=== PATIENT | female | born 1955 | race African-American/Black ===

== ENCOUNTER 2016-12-02 07:33 | Emergency (ER) | payer MEDICARE, OTHER ==
[2016-12-02] MEDS ORDERED: PROMETHAZINE HCL 12.5 MG in 0.9 % SODIUM CHLORIDE 50 ML IV ONE ×2 (07:44→10:04)
[2016-12-02] MEDS ORDERED: fentaNYL CITRATE/PF 100 MCG/ 2ML AMP IVP ONE ×2 (07:44→10:14)
[2016-12-02] MEDS ORDERED: 0.9 % SODIUM CHLORIDE 1,000 ML IV ONE (07:45)
--- NOTE | 2016-12-02 07:47 | ED Physician Documentation ---
Abdominal Pain - HISTORIAN Historian: patient - HPI Stated Complaint: nausea/vomiting Chief Complaint: Abdominal Pain Onset: hours (0300) Duration: constant Timing: worse Context: denies: out of country travel, bad food, recent trauma Severity: severe Quality: pain Associated Symptoms: nausea, vomiting. denies: coffee ground emesis, bloody emesis, diarrhea, grossly bloody stools, chest pain Further Comments: yes (61 year old female patient brought in via EMS with RLQ pain with nausea and vomiting which started at 0300. Patient is visiting from [place]. Last Dialysis 12/01/2016, Last BM 12/01/16) - ROS CONST: recent illness (UTI) GI/: denies: constipation, black stools, bloody urine CVS/RESP: none EYES/ENT: none MS/SKIN/LYMPH: leg swelling NEURO/PSYCH: none Comment: YAS Mcneil; patient poor historian - SOCIAL HX Smoking History: non-smoker - FAMILY HX Family History: denies: none - PAST HX Past History: bladder infection, cardiac disease, GERD, other (See Medical History attachment - End stage renal disease, dialysis patient - home dialysis M , T, Th, F; Colon CA, gastroparesis, diverticulitus, TIAs, Retinal detanchment, asthma, Head injury, anemia, ) Other History: diabetes Type 2, hyperlipidemia, hypertension Surgeries/Procedures: appendectomy, cholecystectomy, hysterectomy, cardiac stent (05/31/16 and 08/30/16), other (LUQ dialysis fitsula, Colon resection - CA, hernia repair 08/2010) Home Medications: Ambulatory Orders Medication Instructions Recorded Aspirin [Luci] 81 mg PO DAILY 12/02/16 Benzonatate [Tessalon] 100 mg PO TID PRN 12/02/16 Bone Meal/Vitamin D2 [Bone 1 each PO Q7D 12/02/16 Meal-Vitamin D Tablet] Chlorhexidine Gluconate [Peridex] PO BID 12/02/16 CloNIDine HCL [Catapress] 0.2 mg PO HS 12/02/16 Cyclobenzaprine HCl [Flexeril] 5 mg PO HS PRN 12/02/16 Diphenoxylate HCl/Atropine 1 mg PO Q6H 12/02/16 [Diphenoxylate-Atropine Liq] Doxycycline Monohydrate 100 mg PO BID 12/02/16 [Vibramycin] Esomeprazole Magnesium [Nexium] 20 mg PO QDAY 12/02/16 Fluticasone Propionate [Flonase] 2 spray NS QDAY 12/02/16 Furosemide [Lasix] 40 mg PO DAILY 12/02/16 Insulin Aspart Protam & Aspart 15 unit SQ 17 12/02/16 [Novolog Mix 70-30 Flexpen Syrn] Insulin Aspart Protam & Aspart 25 unit SQ [id number] 12/02/16 [Novolog Mix 70-30 Flexpen Syrn] Ipratropium [place] [Atrovent] 1 puff NS Q1H PRN 12/02/16 LORazepam [Ativan] 0.5 mg PO HS 12/02/16 Lidocaine/Prilocaine [Emla Cream] 30 gm TP QDAY 12/02/16 Lovastatin [Altoprev] 20 mg PO HS 12/02/16 Metoclopramide HCl [Reglan] 2.5 mg PO TID PRN 12/02/16 Nebivolol HCl [Bystolic] 20 mg PO QDAY 12/02/16 Promethazine HCl [Phenergan] 25 mg PO Q6 PRN 12/02/16 Sevelamer Carbonate [Renvela] 2,400 mg PO TID 12/02/16 Sumatriptan Succinate [Imitrex] 50 mg PO QDAY PRN 12/02/16 Vitamin E 400 unit PO HS 12/02/16 amLODIPine BESYLATE [Norvasc] 10 mg PO 0900 12/02/16 gliPIZIDE [Glucotrol] [place] [address] 12/02/16 Allergies/Adverse Reactions: Allergies Allergy/AdvReac Type Severity Reaction Status Date / Time levofloxacin [From Levaquin] Allergy Rash Verified 12/02/16 07:49 morphine Allergy Itchy Skin Verified 12/02/16 07:49 Penicillins Allergy Rash Verified 12/02/16 07:49 cinacalcet HCl AdvReac Rash Verified 12/02/16 07:49 [From Sensipar] latex AdvReac Rash Verified 12/02/16 07:49 cavy wipes AdvReac Rash Uncoded 12/02/16 07:49 galidium AdvReac Rash Uncoded 12/02/16 07:49 lodine AdvReac Rash Uncoded 12/02/16 07:49 - VITAL SIGNS Vital Signs: Vital Signs Temp Pulse Resp BP Pulse Ox 98.2 F 107 H 24 221/107 94 12/02/16 07:33 12/02/16 07:33 12/02/16 07:33 12/02/16 07:33 12/02/16 07:33 - REVIEWED ASSESSMENTS Nursing Assessment Reviewed: Yes Vitals Reviewed: Yes Progress - Progress Progress: Patient is visiting her mother from [place]. Uses home dialysis treatments with the [facility], usual schedule M, T, Th, Fr, healthcare interpreter reports they did a treatment yesterday and had planned to travel home tomorrow. Patient medicated with promethazine and fentanyl IV for nausea and vomiting. EMS reported patient could not take zofran. Patient has not taken her morning BP medications - Norvasc 10 and bystolic 20mg , hydralazine 10mg IV given. 0930 Reviewed lab and xray results with patient, caregiver and family. Recommended transfer to higher level of care. Family prefers [facility]. 0940 Call to [facility] principal. 1005 Patient awake, c/o nausea; states she cannot take zofran "it make me throw up". Additional promethazine 12.5mg IV given. Repeated Hydralazine. 10mg IV. BBS with faint exp wheeze. Lactate and ammonia both send outs, will defer to [facility] [address] Lerner after CT abd. Patient resting quietly at present. BP improved after 20mg of hydralazine 174/81. Awaiting bed at [facility]. ED Results Lab/Radiology - Lab Results Lab Results: Lab Results 12/02/16 12/02/16 12/02/16 07:46 07:40 07:40 WBC 11.19 K/ul K/ul (4.00-12.00) RBC 3.58 M/ul L M/ul (3.90-5.20) Hgb 11.7 g/dL L g/dL (12.0-16.0) Hct 35.7 % % (34.5-46.5) MCV 99.7 fl fl (80.0-100.0) MCH 32.7 pg pg (28.0-34.0) MCHC 32.8 g/dL g/dL (30.0-36.0) RDW 16.4 % H % (11.3-14.3) Plt Count 129 K/mm3 L K/mm3 (130-400) Neut % (Auto) 89.7 % H % (39.0-79.0) Lymph % (Auto) 5.3 % L % (16.0-50.0) [place] % (Auto) 3.3 % % (0.0-11.0) Eos % (Auto) 1.1 % % (0.0-6.8) Baso % (Auto) 0.2 (0.0-1.5) Neut # (Auto) 10.0 # k/uL H # k/uL (1.4-7.7) Lymph # (Auto) 0.6 # k/uL # k/uL (0.6-4.0) [place] # (Auto) 0.4 # k/uL # k/uL (0.0-0.9) Eos # (Auto) 0.1 # k/uL # k/uL (0.0-0.6) Baso # (Auto) 0.0 # k/uL # k/uL (0.0-0.5) Reactive Lymphs % 0.4 % % (0.0-5.0) Reactive Lymphs # 0.0 # k/uL # k/uL (0.0-0.8) Sodium 137 mmol/L mmol/L (136-145) Potassium 4.2 mmol/L mmol/L (3.5-5.0) Chloride 97 mmol/L L mmol/L (98-110) Carbon Dioxide 29 mmol/L mmol/L (20-32) BUN 45 mg/dL H mg/dL (10-26) Creatinine 9.7 mg/dL H mg/dL (0.4-1.5) Estimated Creat Clear 10 Est GFR ( Amer) 5 L (60 - ) Est GFR (Non-Af Amer) 4 L (60 - ) Glucose 309 mg/dL H mg/dL (70-99) Calcium 10.4 mg/dL mg/dL (8.5-10.5) Total Bilirubin 0.2 mg/dL mg/dL (0.2-1.2) AST 33 U/L U/L (0-41) ALT 38 U/L U/L (0-45) Alkaline Phosphatase 237 U/L H U/L (46-116) Troponin I < 0.03 ng/mL L ng/mL (0.03-0.06) Total Protein 8.0 g/dL g/dL (6.0-8.5) Albumin 4.0 g/dL g/dL (3.0-5.5) - Radiology Radiology Impressions: Abdomen Complete: CLINICAL HISTORY: Right lower quadrant abdominal pain. FINDINGS: Examination of the abdomen in supine and upright views with no prior film for comparison demonstrates gas and stool in the colon. There are surgical clips in right upper quadrant consistent with previous cholecystectomy. Bony structures are intact. Visualized lung bases are clear. There are calcifications in the pelvis consistent with phleboliths. There is no evidence of obstruction or free air. IMPRESSION: Postoperative abdomen. No obstruction or free air. Chest Xray: CLINICAL HISTORY: Wheezing. FINDINGS: Examination of the chest in single portable AP view 12/02/2016 1030 hr with no prior film for comparison demonstrates lungs to be free of coalescent infiltrate. Cardiac silhouette is enlarged and the aorta is atherosclerotic. Monitor leads superimpose the chest. There is mild prominence of the bronchovascular markings in the bases that is felt to be related to overlying soft tissues. IMPRESSION: Aortic atherosclerosis and left ventricular prominence. No active disease. Electronically signed on Dec 02, 2016 10:47:09 AM CDT by: Chuck Suazo CT of the abdomen and pelvis without contrast : CLINICAL HISTORY: Nausea and vomiting. Abdominal pain. TECHNIQUE: CT of the abdomen and pelvis is performed without oral or intravenous administration of contrast. Sagittal and coronal reconstructions are performed by the technologist. FINDINGS: Motion artifact blurs the vascular structures in the lung bases. There are small bilateral pleural effusions with minimal discoid atelectasis in the right base. Liver and spleen demonstrate normal attenuation without focal defect. Gallbladder is surgically absent. There is no pancreatic or adrenal abnormality. Vascular calcification is present in the abdominal aorta and its major branches without evidence of aneurysm. Ventral abdominal hernia is seen in a periumbilical location with herniated segment of transverse colon without evidence of obstruction. Multiple diverticula are seen in the descending and sigmoid colon without evidence of diverticulitis. The uterus is surgically absent. IMPRESSION: Bilateral pleural effusions with discoid changes right base. Postoperative abdomen. Left periumbilical ventral abdominal wall hernia with herniated segment of transverse colon without obstruction. Vascular calcification. Diverticulosis. - Orders Orders: ED Orders Category Date Time Status Place IV Lock 1T Care 12/02/16 07:40 Active ABDOMEN COMPLETE [RAD] Stat Exams 12/02/16 Ordered CHEST 1 VIEW [RAD] Stat Exams 12/02/16 10:[address] ABD & PELVIS W/O CON Stat Exams 12/02/16 Ordered CBC/PLATELET/DIFF Stat Lab 12/02/16 07:40 Completed CMP Stat Lab 12/02/16 07:40 Completed TROPONIN I (cTnI) Stat Lab 12/02/16 07:46 Completed 0.9 % Sodium Chloride [Normal Saline] 1,000 ml Med 12/02/16 07:45 Active IV NOW Ipratropium/Albuterol Sulfate [Duoneb] Med 12/02/16 10:10 Discontinued 3 ml NEB NOW ONE Promethazine HCl [Phenergan] 12.5 mg Med 12/02/16 07:44 Discontinued 0.9 % Sodium Chloride [Sodium Chloride] 50 ml IV NOW Promethazine HCl [Phenergan] 12.5 mg Med 12/02/16 10:04 Discontinued 0.9 % Sodium Chloride [Sodium Chloride] 50 ml IV NOW fentaNYL CITRATE/PF [Duragesic] Med 12/02/16 07:44 Discontinued 50 mcg IVP NOW ONE fentaNYL CITRATE/PF [Duragesic] Med 12/02/16 10:14 Discontinued 50 mcg IVP NOW ONE hydrALAZINE HCL [Apresoline] Med 12/02/16 09:32 Discontinued 10 mg IVP NOW ONE hydrALAZINE HCL [Apresoline] Med 12/02/16 10:04 Discontinued 10 mg IVP NOW ONE EKG WITH COMPARISON Stat Ther 12/02/16 07:46 Completed HI FLOW NEBULIZER TX - INITIAL Routine Ther 12/02/16 Completed HIGH FLOW NEBULIZER Routine Ther 12/02/16 Completed O2 MASK Routine Ther 12/02/16 Completed OXIMETRY-SINGLE CHECK Routine Ther 12/02/16 Completed Abdominal Pain Physical Exam - Physical Exam General Appearance: moderate distress EENT: eye inspection normal, FRANK RESPIRATORY: no resp distress, chest non-tender, breath sounds normal CVS: reg rate & rhythm, heart sounds normal, equal pulses, no murmur, no gallop , PMI nml, no JVD, no friction rub, 24 ABDOMEN: soft, tenderness (RLQ), abnormal bowel sounds (hypoactive BS), McBurney 's point tenderne SKIN: normal color, warm/dry, NR, INT, PAL, DR EXTREMITIES: non-tender, normal range of motion, no evidence of injury, no edema , other (fistula Left upper arm - bruit ascultated) NEURO: oriented X3, motor nml, sensation nml, other (YANG x 4, follows commands, restless, no focal deficit, ) Vital Signs: Vital Signs Temp Pulse Resp BP Pulse Ox 98.2 F 107 H 24 221/107 94 12/02/16 07:33 12/02/16 07:33 12/02/16 07:33 12/02/16 07:33 12/02/16 07:33 Discharge Clincal Impression: ESRD (end stage renal disease), Dialysis patient Nausea & vomiting Qualifiers: Vomiting type: unspecified Vomiting Intractability: intractable Qualified Code( s): R11.2 - Nausea with vomiting, unspecified Abdominal pain Qualifiers: Abdominal location: right lower quadrant Qualified Code(s): R10.31 - Right lower quadrant pain Referrals: Primary Doctor,No [Primary Care Provider] - 2 Days Home Medications: Ambulatory Orders Aspirin [Luci] 81 mg PO DAILY 12/02/16 Benzonatate [Tessalon] 100 mg PO TID PRN 12/02/16 Bone Meal/Vitamin D2 [Bone Meal-Vitamin D Tablet] 1 each PO Q7D 12/02/16 Chlorhexidine Gluconate [Peridex] PO BID 12/02/16 CloNIDine HCL [Catapress] 0.2 mg PO HS 12/02/16 Cyclobenzaprine HCl [Flexeril] 5 mg PO HS PRN 12/02/16 Diphenoxylate HCl/Atropine [Diphenoxylate-Atropine Liq] 1 mg PO Q6H 12/02/16 Doxycycline Monohydrate [Vibramycin] 100 mg PO BID 12/02/16 Esomeprazole Magnesium [Nexium] 20 mg PO QDAY 12/02/16 Fluticasone Propionate [Flonase] 2 spray NS QDAY 12/02/16 Furosemide [Lasix] 40 mg PO DAILY 12/02/16 Insulin Aspart Protam & Aspart [Novolog Mix 70-30 Flexpen Syrn] 15 unit SQ 17 Insulin Aspart Protam & Aspart [Novolog Mix 70-30 Flexpen Syrn] 25 unit SQ [id number] 12/02/16 Ipratropium [place] [Atrovent] 1 puff NS Q1H PRN 12/02/16 LORazepam [Ativan] 0.5 mg PO HS 12/02/16 Lidocaine/Prilocaine [Emla Cream] 30 gm TP QDAY 12/02/16 Lovastatin [Altoprev] 20 mg PO HS 12/02/16 Metoclopramide HCl [Reglan] 2.5 mg PO TID PRN 12/02/16 Nebivolol HCl [Bystolic] 20 mg PO QDAY 12/02/16 Promethazine HCl [Phenergan] 25 mg PO Q6 PRN 12/02/16 Sevelamer Carbonate [Renvela] 2,400 mg PO TID 12/02/16 Sumatriptan Succinate [Imitrex] 50 mg PO QDAY PRN 12/02/16 Vitamin E 400 unit PO HS 12/02/16 amLODIPine BESYLATE [Norvasc] 10 mg PO 0900 12/02/16 gliPIZIDE [Glucotrol] [place] [id number] 12/02/16 Condition: Fair Disposition: 02 XFER SHT-TRM HOSP Decision to Admit: NO Decision Time: 11:15
[2016-12-02 07:56] LABS: BASOPHILS % 0.2 (0.0-1.5); EOSINOPHILS % 1.1 % (0.0-6.8); MEAN CORPUSCULAR HEMOGLOBIN 32.7 pg (28.0-34.0); MEAN CORPUSCULAR VOLUME 99.7 fl (80.0-100.0); MONOCYTES % 3.3 % (0.0-11.0)
[2016-12-02] MEDS ORDERED: hydrALAZINE HCL 20 MG/1 ML IVP ONE ×2 (09:32→10:04)
[2016-12-02] MEDS ORDERED: IPRATROPIUM/ALBUTEROL SULFATE 3 ML AMPUL.NEB NEB ONE (10:10)
[2016-12-02 11:45] VITALS: BP 173/81
--- NOTE | 2016-12-02 15:25 | Diagnostic Imaging Report ---
MELA ELIZONDO (LINDA) - ER [facility] [address] [facility].[address] [address] Report Submission Date: Dec 02, 2016 10:47:09 AM CDT Patient Study Name: RAHEL IBRAHIM Date: Dec 02, 2016 10:30:42 AM CDT Modality Type: CR Gender: F Description: CHEST : 53 Institution: [facility] Physician: MELA ELIZONDO) - ER Chest -one view CLINICAL HISTORY: Wheezing. FINDINGS: Examination of the chest in single portable AP view 12/02/2016 1030 hr with no prior film for comparison demonstrates lungs to be free of coalescent infiltrate. Cardiac silhouette is enlarged and the aorta is atherosclerotic. Monitor leads superimpose the chest. There is mild prominence of the bronchovascular markings in the bases that is felt to be related to overlying soft tissues. IMPRESSION: Aortic atherosclerosis and left ventricular prominence. No active disease. Electronically signed on Dec 02, 2016 10:47:09 AM CDT by: Chuck CASTELLANOS
--- NOTE | 2016-12-02 15:26 | Diagnostic Imaging Report ---
[facility] [address] [facility] [address] [place], [place]. [address] Report Submission Date: Dec 02, 2016 11:09:14 AM CDT Patient Study Name: RAHEL IBRAHIM Date: Dec 02, 2016 10:48:55 AM CDT Modality Type: CT\SR Gender: F Description: CT ABD & PELVIS W/O CO : 53 Institution: [facility] Physician MELA ELIZONDO (PLASTER FOREMAN) - ER CT of the abdomen and pelvis without contrast CLINICAL HISTORY: Nausea and vomiting. Abdominal pain. TECHNIQUE: CT of the abdomen and pelvis is performed without oral or intravenous administration of contrast. Sagittal and coronal reconstructions are performed by the technologist. FINDINGS: Motion artifact blurs the vascular structures in the lung bases. There are small bilateral pleural effusions with minimal discoid atelectasis in the right base. Liver and spleen demonstrate normal attenuation without focal defect. Gallbladder is surgically absent. There is no pancreatic or adrenal abnormality. Vascular calcification is present in the abdominal aorta and its major branches without evidence of aneurysm. Ventral abdominal hernia is seen in a periumbilical location with herniated segment of transverse colon without evidence of obstruction. Multiple diverticula are seen in the descending and sigmoid colon without evidence of diverticulitis. The uterus is surgically absent. IMPRESSION: Bilateral pleural effusions with discoid changes right base. Postoperative abdomen. Left periumbilical ventral abdominal wall hernia with herniated segment of transverse colon without obstruction. Vascular calcification. Diverticulosis. Electronically signed on Dec 02, 2016 11:09:14 AM CDT by: Chuck CASTELLANOS
--- NOTE | 2016-12-02 15:26 | Diagnostic Imaging Report ---
[facility] [address] [facility].[address] [address] Report Submission Date: Dec 02, 2016 9:17:28 AM CDT Patient Study Name: RAHEL IBRAHIM Date: Dec 02, 2016 8:08:20 AM CDT Modality Type: CR Gender: F Description: ABDOMEN : 53 Institution: [facility] Physician MELA ELIZONDO (BOOM MAN) - ER Obstructive series CLINICAL HISTORY: Right lower quadrant abdominal pain. FINDINGS: Examination of the abdomen in supine and upright views with no prior film for comparison demonstrates gas and stool in the colon. There are surgical clips in right upper quadrant consistent with previous cholecystectomy. Bony structures are intact. Visualized lung bases are clear. There are calcifications in the pelvis consistent with phleboliths. There is no evidence of obstruction or free air. IMPRESSION: Postoperative abdomen. No obstruction or free air. Electronically signed on Dec 02, 2016 9:17:28 AM CDT by: Chuck CASTELLANOS
== END 2016-12-02 11:30 | disposition short-term general hospital (02) ==
LOC: ED 07:33
DX: N18.6 End stage renal disease (principal); Z99.2 Dependence on renal dialysis; R11.2 Nausea with vomiting, unspecified; R10.31 Right lower quadrant pain
CPT/HCPCS: 71010; 74020; 74176; 80053; 84484; 85025; 93005; 94640; 94760; J0360; J2550; J3010; J7030; 96361; 96365; 96367; 96375; 99284; S1016